=== PATIENT | male | born 1985 | race Caucasian/White ===

== ENCOUNTER 2019-04-26 11:04 | Emergency (ER) | payer OTHER ==
[~2019-04-26] VITALS: Ht 182.9 cm; Wt 86.2 kg
[2019-04-26] MEDS ORDERED: NAPROSYN500 MG PO (11:46)
[2019-04-26] MEDS ORDERED: NORFLEX100 MG PO (11:46)
[2019-04-26 12:08] VITALS: BP 138/85
== END 2019-04-26 12:09 | disposition home or self-care (01) ==
LOC: ER 11:04
DX: S16.1XXA Strain of muscle, fascia and tendon at neck level, initial encounter (principal); S39.012A Strain of muscle, fascia and tendon of lower back, initial encounter; V89.2XXA Person injured in unspecified motor-vehicle accident, traffic, initial encounter; Y92.89 Other specified places as the place of occurrence of the external cause; Y93.89 Activity, other specified; Y99.8 Other external cause status